=== PATIENT | female | born 1950 | race Caucasian/White ===

== ENCOUNTER → 2021-08-08 | Outpatient (CLI) | payer MEDICARE, OTHER ==
[~2021-08-08] MED LIST: BACTROBAN OINT22 GM EXT; IBUPROFEN600 MG PO
== END ==
LOC: KOH-I 09:31
DX: M79.671 Pain in right foot (principal)
CPT/HCPCS: 73630

== ENCOUNTER → 2021-08-20 | Outpatient (CLI) | payer MEDICARE, OTHER | LOC: KOH-I 08:54 | DX: S86.011A Strain of right Achilles tendon, initial encounter (principal); M76.61 Achilles tendinitis, right leg | CPT/HCPCS: 73718 ==

== ENCOUNTER → 2021-10-24 | Outpatient (CLI) | payer MEDICARE, OTHER | LOC: KOH-I 13:00 | DX: Z01.810 Encounter for preprocedural cardiovascular examination (principal); M79.661 Pain in right lower leg | CPT/HCPCS: 93926 ==